=== PATIENT | male | born 1975 | race Caucasian/White ===

== ENCOUNTER 2017-08-21 09:45 | Emergency (ER) | payer OTHER ==
[~2017-08-21] VITALS: Ht 172.7 cm; Wt 85.0 kg
[~2017-08-21 09:45] MED LIST: NOCURR
[2017-08-21] MEDS ORDERED: IBUPROFEN 600 MG TABLET PO ONE (10:15)
[2017-08-21 10:16] VITALS: BP 140/87
== END 2017-08-21 11:12 | disposition home or self-care (01) ==
LOC: EMS 09:45
DX: S20.212A Contusion of left front wall of thorax, initial encounter (principal); Z88.8 Allergy status to other drugs, medicaments and biological substances; W54.1XXA Struck by dog, initial encounter; Y93.89 Activity, other specified; Y92.89 Other specified places as the place of occurrence of the external cause; Y99.8 Other external cause status
CPT/HCPCS: 99283

== ENCOUNTER 2017-08-24 07:00 | Emergency (ER) | payer OTHER ==
[~2017-08-24] VITALS: Ht 172.7 cm; Wt 81.8 kg
[2017-08-24 07:03] VITALS: BP 115/84
[2017-08-24] MEDS ORDERED: HYDR-309 PO (07:08)
[2017-08-24] MEDS ORDERED: IBUP-2070 PO (07:08)
== END 2017-08-24 09:43 | disposition home or self-care (01) ==
LOC: EMS 07:02
DX: S20.212D Contusion of left front wall of thorax, subsequent encounter (principal); Z88.7 Allergy status to serum and vaccine; Z79.899 Other long term (current) drug therapy; X58.XXXD Exposure to other specified factors, subsequent encounter
CPT/HCPCS: 99281

== ENCOUNTER 2017-08-26 09:51 | Emergency (ER) | payer SELFPAY ==
[~2017-08-26] VITALS: Ht 172.7 cm; Wt 81.8 kg
[~2017-08-26 09:51] MED LIST changes: +HYDR-309 PO; +IBUP-2070 PO
[2017-08-26] MEDS ORDERED: KETOROLAC TROMETHAMINE 60 MG/2 ML VIAL IM ONE (12:15)
[2017-08-26] MEDS ORDERED: LIDOCAINE HCL 5% TRANSDERMAL PATCH TD ONE (12:15)
[2017-08-26 12:40] VITALS: BP 138/71
== END 2017-08-26 13:02 | disposition home or self-care (01) ==
LOC: EMS 09:52
DX: S20.212A Contusion of left front wall of thorax, initial encounter (principal); Z88.7 Allergy status to serum and vaccine; X58.XXXA Exposure to other specified factors, initial encounter; Y93.89 Activity, other specified; Y92.89 Other specified places as the place of occurrence of the external cause; Y99.8 Other external cause status
CPT/HCPCS: 96372; 99283; G0238; J1885

== ENCOUNTER 2019-05-23 22:03 | Emergency (ER) | payer OTHER ==
[~2019-05-23] VITALS: Ht 172.7 cm; Wt 95.5 kg
[~2019-05-23 22:03] MED LIST changes: -NOCURR
[2019-05-23] MEDS ORDERED: KETOROLAC TROMETHAMINE 30 MG/ML VIAL IM ONE (22:30)
[2019-05-23] MEDS ORDERED: ACETAMINOPHEN 500 MG TABLET PO ONE (22:30)
[2019-05-24 01:25] VITALS: BP 133/92
== END 2019-05-24 01:30 | disposition home or self-care (01) ==
LOC: EMS 22:04
DX: S22.069A Unspecified fracture of T7-T8 vertebra, initial encounter for closed fracture (principal); F17.290 Nicotine dependence, other tobacco product, uncomplicated; Z88.7 Allergy status to serum and vaccine; V49.40XA Driver injured in collision with unspecified motor vehicles in traffic accident, initial encounter; Y93.89 Activity, other specified; Y92.89 Other specified places as the place of occurrence of the external cause; Y99.8 Other external cause status
CPT/HCPCS: 72125; 72128; 72131; 96372; 99284; 99406; J1885